=== PATIENT | female | born 1975 | race Caucasian/White ===

== ENCOUNTER 2017-05-27 09:00 | Day surgery (SDC) | payer OTHER ==
[~2017-05-27] VITALS: Ht 170.2 cm; Wt 105.9 kg
[~2017-05-27 09:00] MED LIST: ALBU4 PO; AMIT25 PO; AMLO10 PO; AMOX500 PO; ATEN25 PO; CEPH500 PO; CITA20 PO; CLON.1 PO; CLON.3TP PO; CRUTCH3 USE; CYCL10 PO; DANA200; DILT90 PO; DIVA250EC; ESCI10; ESCI20; FAMO20 PO; FLONASE ALLERG9.9 ML; HYDACE5 PO; HYDCHL25 PO; HYDGUAL120 PO; HYDPAM25; HYDPAM25 PO; IBUP800; IBUP800 PO; K-Dur20 MEQ PO; LAMO25; LEVFLO500 PO; LISI10; LISI20; LISI20 PO; Lasix40 MG; Lasix40 MG PO; Lisinopril2.5 MG; METO50 PO; MONT10T; Metoprolol Tart50 MG PO; NAPR220; NAPR500 PO; NAPR550 PO; NEBI10 PO; NEOPOLHCSU OT; OMEP20ER PO; OXYACE5T PO; PRAHYD1AE TOP; PRED10 PO; PROACE100; PROACE100 PO; PROP40; Pepcid40 MG PO; Prednisone10 MG PO; Prilosec Otc20 MG; QUET25; RXHYDACE PO; RXNEOPOLHC AS; RXPROACE PO; SERT50 PO; SULTRIDS PO; TELM40 PO; TRAM50; TRAZ100 PO; URSO300; VENL25; [UNRECOGNIZED DRUG - REMARK]; [UNRECOGNIZED DRUG - REMARK]
[2018-04-13] MEDS ORDERED: METO25ER (10:30)
[2018-04-13] MEDS ORDERED: GABA100 PO (10:30)
[2018-04-13] MEDS ORDERED: CYCL10 PO (16:41)
[2018-04-13] MEDS ORDERED: HYDHCL25 PO (16:42)
[2018-04-17] MEDS ORDERED: GABA100 PO (14:09)
[2018-04-17] MEDS ORDERED: GAVILAX17 GM PO (14:11)
[2018-04-17] MEDS ORDERED: Senna Plus Tab1 EACH PO (14:11)
[2018-04-17] MEDS ORDERED: FAMO20 PO (14:11)
[2018-04-17] MEDS ORDERED: FOLI1 PO (14:11)
[2018-04-17] MEDS ORDERED: Pentoxifylline400 MG PO (14:12)
[2018-04-17] MEDS ORDERED: THERAPEUTIC-M1 EAC1 PO (14:12)
[2018-04-17] MEDS ORDERED: THIA100 PO (14:13)
[2018-04-17] MEDS ORDERED: LEVFLO500 PO (14:13)
[2018-04-22] MEDS ORDERED: FURO40 PO (11:32)
[2018-04-22] MEDS ORDERED: Omeprazole20 M1 (11:34)
[2018-04-22] MEDS ORDERED: SPIR50 PO (11:35)
[2018-04-22] MEDS ORDERED: Ultram50 MG PO (11:36)
== END 2017-05-27 10:52 | disposition home or self-care (01) ==
LOC: ORSCSDS 09:00
DX: K62.5 Hemorrhage of anus and rectum (principal); D12.2 Benign neoplasm of ascending colon; D12.5 Benign neoplasm of sigmoid colon; K64.8 Other hemorrhoids; K57.30 Diverticulosis of large intestine without perforation or abscess without bleeding; D50.9 Iron deficiency anemia, unspecified; K21.9 Gastro-esophageal reflux disease without esophagitis; F17.210 Nicotine dependence, cigarettes, uncomplicated; F41.8 Other specified anxiety disorders; J45.998 Other asthma; I10 Essential (primary) hypertension; Z79.899 Other long term (current) drug therapy
CPT/HCPCS: 88305

== ENCOUNTER → 2017-10-29 | Outpatient (CLI) | payer OTHER ==
[2017-10-29 10:19] LABS: BASOPHILS ABSOLUTE AUTO 0.03 K/mm3 (0.00-0.23); BASOPHILS PERCENT AUTO 1 % (0-2); EOSINOPHILS ABSOLUTE AUTO 0.03 K/mm3 (0.00-0.68); EOSINOPHILS PERCENT AUTO 1 % (0-6); Hematocrit 24.7 % (33.0-51.0); Hemoglobin 7.5 g/dL (11.5-16.0); IMMATURE GRAN ABSOLUTE AUTO 0.01 K/mm3 (0.00-0.10); IMMATURE GRAN PERCENT AUTO 0 % (0-1); LYMPHOCYTES ABSOLUTE AUTO 0.87 K/mm3 (0.84-5.20); LYMPHOCYTES PERCENT AUTO 27 % (21-46); MONOCYTES PERCENT AUTO 9 % (4-13); Mean Corpuscular HGB 26.5 pg (26.0-34.0); Mean Corpuscular HGB Conc 30.4 g/dL (31.5-36.5); Mean Corpuscular Volume 87 fL (80-100); NEUTROPHILS ABSOLUTE AUTO 2.04 K/mm3 (1.96-9.15); NEUTROPHILS PERCENT AUTO 62 % (41-73); RDW Coefficient Variation 20.3 % (11.7-14.2); RDW Standard Deviation 64.1 fL (35.1-46.3); Red Blood Cell Count 2.83 M/mm3 (3.80-5.20); White Blood Cell Count 3.28 K/mm3 (4.00-11.30)
[2017-10-29 10:42] LABS: Alanine Aminotransfer (ALT/SGP 33 U/L (12-78); Albumin, Blood 2.8 g/dL (3.4-5.0); Albumin/Globulin Ratio 0.6 (0.8-1.8); Alk Phos 589 U/L (50-136); Anion Gap 9 mmol/L (6-16); Aspartate Aminotrans (AST/SGOT 118 U/L (12-37); Bilirubin, Total 5.4 mg/dL (0.1-1.0); Blood Urea Nitrogen 8 mg/dL (8-24); Bun/Creatinine Ratio 16.2 (12.0-20.0); CO2, Blood 27 mmol/L (21-32); Calcium, Blood 7.7 mg/dL (8.5-10.1); Chloride, Blood 104 mmol/L (98-108); Creatinine, Blood 0.49 mg/dL (0.40-1.00); Glomerular Filtration Rate >60 (60-); Glucose, Blood 140 mg/dL (70-99); Potassium, Blood 3.4 mmol/L (3.5-5.5); Sodium, Blood 140 mmol/L (136-145); Total Protein, Blood 7.8 g/dL (6.4-8.2)
[2017-10-29 10:47] LABS: Platelet Count 54 K/mm3 (150-400)
== END ==
LOC: LAB SHORT 09:25
PROVIDERS: Physician Assistant
DX: F10.20 Alcohol dependence, uncomplicated (principal); K70.10 Alcoholic hepatitis without ascites
CPT/HCPCS: 80053; 85025

== ENCOUNTER 2017-11-07 20:42 | Emergency (ER) | payer OTHER ==
[~2017-11-07] VITALS: Ht 170.2 cm; Wt 99.3 kg
[2017-11-07] MEDS ORDERED: Naltrexone HCl50 MG (20:54)
[2017-11-07] MEDS ORDERED: POTA20PAC (20:54)
[2017-11-07] MEDS ORDERED: Prednisone20 MG PO (21:10)
== END 2017-11-07 21:25 | disposition home or self-care (01) ==
LOC: ER 20:42
DX: M54.41 Lumbago with sciatica, right side (principal); Z88.5 Allergy status to narcotic agent; Z88.8 Allergy status to other drugs, medicaments and biological substances; Z79.899 Other long term (current) drug therapy; I10 Essential (primary) hypertension; F31.9 Bipolar disorder, unspecified; F43.10 Post-traumatic stress disorder, unspecified; F17.210 Nicotine dependence, cigarettes, uncomplicated
CPT/HCPCS: 99283

== ENCOUNTER 2017-11-27 14:23 | Emergency (ER) | payer OTHER ==
[~2017-11-27] VITALS: Ht 170.2 cm; Wt 99.3 kg
[~2017-11-27 14:23] MED LIST changes: +Naltrexone HCl50 MG; +POTA20PAC; +Prednisone20 MG PO
[2017-11-27 15:06] LABS: BASOPHILS ABSOLUTE AUTO 0.03 K/mm3 (0.00-0.23); BASOPHILS PERCENT AUTO 1 % (0-2); EOSINOPHILS ABSOLUTE AUTO 0.08 K/mm3 (0.00-0.68); EOSINOPHILS PERCENT AUTO 2 % (0-6); Hematocrit 26.5 % (33.0-51.0); IMMATURE GRAN ABSOLUTE AUTO 0.01 K/mm3 (0.00-0.10); IMMATURE GRAN PERCENT AUTO 0 % (0-1); LYMPHOCYTES ABSOLUTE AUTO 1.19 K/mm3 (0.84-5.20); LYMPHOCYTES PERCENT AUTO 22 % (21-46); MONOCYTES ABSOLUTE AUTO 0.36 K/mm3 (0.16-1.47); MONOCYTES PERCENT AUTO 7 % (4-13); Mean Corpuscular HGB 25.5 pg (26.0-34.0); Mean Corpuscular HGB Conc 30.2 g/dL (31.5-36.5); Mean Corpuscular Volume 84 fL (80-100); Mean Platelet Volume 11.4 fL (9.1-12.4); NEUTROPHILS ABSOLUTE AUTO 3.77 K/mm3 (1.96-9.15); NEUTROPHILS PERCENT AUTO 69 % (41-73); Platelet Count 146 K/mm3 (150-400); RDW Coefficient Variation 18.1 % (11.7-14.2); RDW Standard Deviation 55.5 fL (35.1-46.3); Red Blood Cell Count 3.14 M/mm3 (3.80-5.20); White Blood Cell Count 5.44 K/mm3 (4.00-11.30)
[2017-11-27 15:28] LABS: Alanine Aminotransfer (ALT/SGP 32 U/L (12-78); Albumin, Blood 2.8 g/dL (3.4-5.0); Albumin/Globulin Ratio 0.5 (0.8-1.8); Alk Phos 233 U/L (50-136); Anion Gap 10 mmol/L (6-16); Aspartate Aminotrans (AST/SGOT 51 U/L (12-37); Blood Urea Nitrogen 12 mg/dL (8-24); Bun/Creatinine Ratio 20.7 (12.0-20.0); CO2, Blood 23 mmol/L (21-32); Calcium, Blood 8.7 mg/dL (8.5-10.1); Chloride, Blood 106 mmol/L (98-108); Creatinine, Blood 0.58 mg/dL (0.40-1.00); Globulin, Blood 5.1 g/dL (2.2-4.0); Glomerular Filtration Rate >60 (60-); Glucose, Blood 118 mg/dL (70-99); Potassium, Blood 3.8 mmol/L (3.5-5.5); Sodium, Blood 139 mmol/L (136-145); Total Protein, Blood 7.9 g/dL (6.4-8.2)
[2017-11-27] MEDS ORDERED: HYDPAM25 (15:36)
[2017-11-27 15:57] LABS: Source, Urine Clean Catch
[2017-11-27 16:02] LABS: Blood, Urine Neg (Neg); Glucose Qualitative, Urine Neg (Neg); Ketones, Urine 1+ (Neg); Leukocyte Esterase, Urine 1+ (Neg); Nitrite, Urine Pos (Neg); Protein, Urine 1+ (Neg); Urobilinogen, Urine 4+ (Normal)
[2017-11-27 16:07] LABS: Appearance, Urine Clear (Clear); Bilirubin, Urine 2+ (Neg); Color, Urine Yellow (P-Yellow)
[2017-11-27 16:11] LABS: Bacteria Many /hpf; Red Blood Cells, Urine 0-2 /hpf (0-2); Squamous Epithelial Cells Few /hpf (Few)
[2017-11-27] MEDS ORDERED: CEPH500 PO (16:24)
== END 2017-11-27 16:34 | disposition home or self-care (01) ==
LOC: ER 14:23
PROVIDERS: Emergency Medicine
DX: R60.0 Localized edema (principal); I10 Essential (primary) hypertension; F31.9 Bipolar disorder, unspecified; Z88.8 Allergy status to other drugs, medicaments and biological substances; Z88.5 Allergy status to narcotic agent; Z79.899 Other long term (current) drug therapy
CPT/HCPCS: 36415; 80053; 81001; 83880; 85025; 93005; 93010; 99284-25

== ENCOUNTER 2018-04-29 14:07 | Emergency (ER) | payer OTHER ==
[~2018-04-29] VITALS: Ht 170.2 cm; Wt 97.5 kg
[~2018-04-29 14:07] MED LIST changes: +FOLI1 PO; +FURO40 PO; +GABA100 PO; +GAVILAX17 GM PO; +HYDHCL25 PO; +METO25ER; +Omeprazole20 M1; +Pentoxifylline400 MG PO; +SPIR50 PO; +Senna Plus Tab1 EACH PO; +THERAPEUTIC-M1 EAC1 PO; +THIA100 PO; +Ultram50 MG PO
[2018-04-29 14:46] LABS: BASOPHILS ABSOLUTE AUTO 0.05 K/mm3 (0.00-0.23); BASOPHILS PERCENT AUTO 0 % (0-2); EOSINOPHILS ABSOLUTE AUTO 0.09 K/mm3 (0.00-0.68); EOSINOPHILS PERCENT AUTO 1 % (0-6); Hematocrit 28.8 % (33.0-51.0); Hemoglobin 8.8 g/dL (11.5-16.0); IMMATURE GRAN ABSOLUTE AUTO 0.14 K/mm3 (0.00-0.10); IMMATURE GRAN PERCENT AUTO 1 % (0-1); LYMPHOCYTES ABSOLUTE AUTO 1.83 K/mm3 (0.84-5.20); LYMPHOCYTES PERCENT AUTO 9 % (21-46); MONOCYTES ABSOLUTE AUTO 1.42 K/mm3 (0.16-1.47); MONOCYTES PERCENT AUTO 7 % (4-13); Mean Corpuscular HGB 23.2 pg (26.0-34.0); Mean Corpuscular HGB Conc 30.6 g/dL (31.5-36.5); Mean Corpuscular Volume 76 fL (80-100); Mean Platelet Volume 10.3 fL (9.1-12.4); NEUTROPHILS PERCENT AUTO 82 % (41-73); Platelet Count 230 K/mm3 (150-400); RDW Coefficient Variation 21.5 % (11.7-14.2); RDW Standard Deviation 58.1 fL (35.1-46.3); White Blood Cell Count 19.83 K/mm3 (4.00-11.30)
[2018-04-29 15:10] LABS: Alanine Aminotransfer (ALT/SGP 55 U/L (12-78); Albumin, Blood 2.1 g/dL (3.4-5.0); Albumin/Globulin Ratio 0.4 (0.8-1.8); Alk Phos 379 U/L (50-136); Anion Gap 9 mmol/L (6-16); Aspartate Aminotrans (AST/SGOT 99 U/L (12-37); Bilirubin, Total 19.1 mg/dL (0.1-1.0); Blood Urea Nitrogen 11 mg/dL (8-24); Bun/Creatinine Ratio 20.4 (12.0-20.0); CO2, Blood 26 mmol/L (21-32); Calcium, Blood 8.3 mg/dL (8.5-10.1); Chloride, Blood 94 mmol/L (98-108); Creatinine, Blood 0.54 mg/dL (0.40-1.00); Globulin, Blood 5.4 g/dL (2.2-4.0); Glomerular Filtration Rate >60 (60-); Glucose, Blood 101 mg/dL (70-99); Potassium, Blood 3.7 mmol/L (3.5-5.5); Sodium, Blood 129 mmol/L (136-145); Total Protein, Blood 7.5 g/dL (6.4-8.2); Troponin I <0.015 ng/mL (0.000-0.040)
[2018-04-29 15:20] LABS: International Normalized Ratio 1.76; Prothrombin Time Results 17.6 Sec (9.7-11.5)
[2018-04-29 16:57] LABS: Source, Urine Clean Catch
[2018-04-29 17:05] LABS: Blood, Urine 4+ (Neg); Glucose Qualitative, Urine Neg (Neg); Ketones, Urine Neg (Neg); Leukocyte Esterase, Urine Neg (Neg); Nitrite, Urine Neg (Neg); Protein, Urine Neg (Neg); Urobilinogen, Urine 2+ (Normal)
[2018-04-29 17:20] LABS: Appearance, Urine Clear (Clear); Bilirubin, Urine 3+ (Neg); Color, Urine Yellow (P-Yellow)
[2018-04-29 17:21] LABS: Bacteria Mod /hpf; Squamous Epithelial Cells Few /hpf (Few); Transitional Epithelial Cells Few /hpf (0-Rare); White Blood Cells, Urine 0-2 /hpf (0-5)
== END 2018-04-29 18:05 | disposition home or self-care (01) ==
LOC: ER 14:07
PROVIDERS: Emergency Medicine; Physician Assistant
DX: R07.89 Other chest pain (principal); R18.8 Other ascites; K74.60 Unspecified cirrhosis of liver; R06.02 Shortness of breath; K72.90 Hepatic failure, unspecified without coma; I10 Essential (primary) hypertension; F31.9 Bipolar disorder, unspecified; F43.10 Post-traumatic stress disorder, unspecified; Z88.5 Allergy status to narcotic agent; Z88.8 Allergy status to other drugs, medicaments and biological substances; Z79.899 Other long term (current) drug therapy; F17.210 Nicotine dependence, cigarettes, uncomplicated
CPT/HCPCS: 36415; 49083; 71046; 80053; 81001; 83880; 84484; 85025; 85610; 93005; 93010; 96365; 99285-25; P9045

== ENCOUNTER 2018-05-05 12:02 | Emergency (ER) | payer OTHER ==
[~2018-05-05] VITALS: Ht 170.2 cm; Wt 87.1 kg
[2018-05-05 12:39] LABS: BASOPHILS ABSOLUTE AUTO 0.06 K/mm3 (0.00-0.23); BASOPHILS PERCENT AUTO 0 % (0-2); EOSINOPHILS ABSOLUTE AUTO 0.04 K/mm3 (0.00-0.68); EOSINOPHILS PERCENT AUTO 0 % (0-6); Hematocrit 30.6 % (33.0-51.0); Hemoglobin 9.3 g/dL (11.5-16.0); IMMATURE GRAN ABSOLUTE AUTO 0.09 K/mm3 (0.00-0.10); IMMATURE GRAN PERCENT AUTO 1 % (0-1); LYMPHOCYTES ABSOLUTE AUTO 1.56 K/mm3 (0.84-5.20); LYMPHOCYTES PERCENT AUTO 9 % (21-46); MONOCYTES ABSOLUTE AUTO 1.06 K/mm3 (0.16-1.47); MONOCYTES PERCENT AUTO 6 % (4-13); Mean Corpuscular HGB 22.5 pg (26.0-34.0); Mean Corpuscular HGB Conc 30.4 g/dL (31.5-36.5); Mean Corpuscular Volume 74 fL (80-100); Mean Platelet Volume 10.3 fL (9.1-12.4); NEUTROPHILS ABSOLUTE AUTO 15.29 K/mm3 (1.96-9.15); NEUTROPHILS PERCENT AUTO 85 % (41-73); Platelet Count 208 K/mm3 (150-400); RDW Coefficient Variation 20.8 % (11.7-14.2); Red Blood Cell Count 4.13 M/mm3 (3.80-5.20)
[2018-05-05 12:52] LABS: International Normalized Ratio 1.84; Prothrombin Time Results 18.3 Sec (9.7-11.5)
[2018-05-05 12:54] LABS: Alanine Aminotransfer (ALT/SGP 65 U/L (12-78); Albumin, Blood 2.1 g/dL (3.4-5.0); Albumin/Globulin Ratio 0.4 (0.8-1.8); Alk Phos 401 U/L (50-136); Anion Gap 9 mmol/L (6-16); Aspartate Aminotrans (AST/SGOT 101 U/L (12-37); Bilirubin, Total 15.6 mg/dL (0.1-1.0); Blood Urea Nitrogen 10 mg/dL (8-24); Bun/Creatinine Ratio 19.6 (12.0-20.0); CO2, Blood 26 mmol/L (21-32); Calcium, Blood 8.4 mg/dL (8.5-10.1); Chloride, Blood 97 mmol/L (98-108); Creatinine, Blood 0.51 mg/dL (0.40-1.00); Globulin, Blood 5.4 g/dL (2.2-4.0); Glomerular Filtration Rate >60 (60-); Glucose, Blood 100 mg/dL (70-99); Potassium, Blood 3.6 mmol/L (3.5-5.5); Sodium, Blood 132 mmol/L (136-145); Total Protein, Blood 7.5 g/dL (6.4-8.2)
[2018-05-05 13:55] LABS: Source, Urine Voided
[2018-05-05 14:06] LABS: Appearance, Urine Clear (Clear); Blood, Urine 1+ (Neg); Color, Urine Amber (P-Yellow); Glucose Qualitative, Urine Neg (Neg); Ketones, Urine 1+ (Neg); Leukocyte Esterase, Urine 1+ (Neg); Nitrite, Urine Neg (Neg); Protein, Urine 2+ (Neg); Specific Gravity, Urine 1.015 (1.003-1.022); Urobilinogen, Urine 4+ (Normal)
[2018-05-05 14:20] LABS: Bilirubin, Urine 3+ (Neg)
[2018-05-05 14:21] LABS: Squamous Epithelial Cells Few /hpf (Few)
[2018-05-05] MEDS ORDERED: Ultram50 MG PO (14:22)
[2018-05-05 14:24] LABS: Bacteria Few /hpf
[2018-05-05] MEDS ORDERED: ONDA4ODT MM (15:19)
[2018-05-05] MEDS ORDERED: Cephalexin500 M1 PO (15:54)
== END 2018-05-05 16:00 | disposition home or self-care (01) ==
LOC: ER 12:02
PROVIDERS: Physician Assistant
DX: K74.60 Unspecified cirrhosis of liver (principal); R18.8 Other ascites; R06.02 Shortness of breath; N39.0 Urinary tract infection, site not specified; F31.9 Bipolar disorder, unspecified; F43.10 Post-traumatic stress disorder, unspecified; F17.200 Nicotine dependence, unspecified, uncomplicated
CPT/HCPCS: 36415; 49083; 71046; 80053; 81001; 82140; 83880; 85025; 85610; 85730; 87086; 93005; 93010; 96365; 96375; 99284-25; J2405; P9041

== ENCOUNTER 2018-05-29 20:39 | Emergency (ER) | payer OTHER ==
[~2018-05-29] VITALS: Ht 170.2 cm; Wt 86.6 kg
[~2018-05-29 20:39] MED LIST changes: +Cephalexin500 M1 PO; +ONDA4ODT MM
[2018-05-29 21:34] LABS: BASOPHILS ABSOLUTE AUTO 0.01 K/mm3 (0.00-0.23); BASOPHILS PERCENT AUTO 0 % (0-2); EOSINOPHILS PERCENT AUTO 0 % (0-6); Hematocrit 28.8 % (33.0-51.0); Hemoglobin 8.3 g/dL (11.5-16.0); IMMATURE GRAN ABSOLUTE AUTO 0.04 K/mm3 (0.00-0.10); IMMATURE GRAN PERCENT AUTO 0 % (0-1); LYMPHOCYTES ABSOLUTE AUTO 0.92 K/mm3 (0.84-5.20); LYMPHOCYTES PERCENT AUTO 10 % (21-46); MONOCYTES ABSOLUTE AUTO 0.37 K/mm3 (0.16-1.47); MONOCYTES PERCENT AUTO 4 % (4-13); Mean Corpuscular HGB Conc 28.8 g/dL (31.5-36.5); Mean Corpuscular Volume 73 fL (80-100); Mean Platelet Volume 9.8 fL (9.1-12.4); NEUTROPHILS ABSOLUTE AUTO 8.07 K/mm3 (1.96-9.15); NEUTROPHILS PERCENT AUTO 86 % (41-73); Platelet Count 183 K/mm3 (150-400); RDW Coefficient Variation 20.3 % (11.7-14.2); RDW Standard Deviation 52.9 fL (35.1-46.3); Red Blood Cell Count 3.96 M/mm3 (3.80-5.20); White Blood Cell Count 9.41 K/mm3 (4.00-11.30)
[2018-05-29 21:52] LABS: Alanine Aminotransfer (ALT/SGP 73 U/L (12-78); Albumin, Blood 2.3 g/dL (3.4-5.0); Albumin/Globulin Ratio 0.4 (0.8-1.8); Alk Phos 308 U/L (50-136); Anion Gap 9 mmol/L (6-16); Aspartate Aminotrans (AST/SGOT 61 U/L (12-37); Bilirubin, Total 6.1 mg/dL (0.1-1.0); Blood Urea Nitrogen 25 mg/dL (8-24); Bun/Creatinine Ratio 30.2 (12.0-20.0); CO2, Blood 27 mmol/L (21-32); Calcium, Blood 8.2 mg/dL (8.5-10.1); Chloride, Blood 102 mmol/L (98-108); Creatinine, Blood 0.83 mg/dL (0.40-1.00); Globulin, Blood 5.2 g/dL (2.2-4.0); Glomerular Filtration Rate >60 (60-); Glucose, Blood 136 mg/dL (70-99); Potassium, Blood 3.9 mmol/L (3.5-5.5); Sodium, Blood 138 mmol/L (136-145); Total Protein, Blood 7.5 g/dL (6.4-8.2)
== END 2018-05-30 00:33 | disposition home or self-care (01) ==
LOC: ER 20:39
PROVIDERS: Emergency Medicine
DX: K70.9 Alcoholic liver disease, unspecified (principal); B37.0 Candidal stomatitis; D64.9 Anemia, unspecified; Z88.5 Allergy status to narcotic agent; Z88.8 Allergy status to other drugs, medicaments and biological substances; Z79.899 Other long term (current) drug therapy; I10 Essential (primary) hypertension; F31.9 Bipolar disorder, unspecified; F17.210 Nicotine dependence, cigarettes, uncomplicated
CPT/HCPCS: 36415; 80053; 82140; 83690; 85025; 99284

== ENCOUNTER 2018-06-16 12:30 | Emergency (ER) | payer OTHER ==
[~2018-06-16] VITALS: Ht 170.2 cm; Wt 82.5 kg
[2018-06-16 13:45] LABS: BASOPHILS ABSOLUTE AUTO 0.03 K/mm3 (0.00-0.23); BASOPHILS PERCENT AUTO 1 % (0-2); EOSINOPHILS ABSOLUTE AUTO 0.09 K/mm3 (0.00-0.68); EOSINOPHILS PERCENT AUTO 1 % (0-6); Hematocrit 28.8 % (33.0-51.0); Hemoglobin 8.2 g/dL (11.5-16.0); IMMATURE GRAN ABSOLUTE AUTO 0.04 K/mm3 (0.00-0.10); IMMATURE GRAN PERCENT AUTO 1 % (0-1); LYMPHOCYTES ABSOLUTE AUTO 1.17 K/mm3 (0.84-5.20); LYMPHOCYTES PERCENT AUTO 18 % (21-46); MONOCYTES ABSOLUTE AUTO 0.38 K/mm3 (0.16-1.47); MONOCYTES PERCENT AUTO 6 % (4-13); Mean Corpuscular HGB 20.9 pg (26.0-34.0); Mean Corpuscular HGB Conc 28.5 g/dL (31.5-36.5); Mean Corpuscular Volume 73 fL (80-100); NEUTROPHILS ABSOLUTE AUTO 4.84 K/mm3 (1.96-9.15); NEUTROPHILS PERCENT AUTO 74 % (41-73); Platelet Count 133 K/mm3 (150-400); RDW Coefficient Variation 23.6 % (11.7-14.2); RDW Standard Deviation 61.2 fL (35.1-46.3); Red Blood Cell Count 3.93 M/mm3 (3.80-5.20); White Blood Cell Count 6.55 K/mm3 (4.00-11.30)
[2018-06-16 13:47] LABS: Mean Platelet Volume 9.6 fL (9.1-12.4)
[2018-06-16 14:04] LABS: Alanine Aminotransfer (ALT/SGP 42 U/L (12-78); Albumin, Blood 2.4 g/dL (3.4-5.0); Albumin/Globulin Ratio 0.5 (0.8-1.8); Alk Phos 308 U/L (50-136); Anion Gap 11 mmol/L (6-16); Aspartate Aminotrans (AST/SGOT 38 U/L (12-37); Blood Urea Nitrogen 17 mg/dL (8-24); Bun/Creatinine Ratio 23.2 (12.0-20.0); CO2, Blood 21 mmol/L (21-32); Calcium, Blood 8.3 mg/dL (8.5-10.1); Chloride, Blood 103 mmol/L (98-108); Creatinine, Blood 0.73 mg/dL (0.40-1.00); Globulin, Blood 4.8 g/dL (2.2-4.0); Glomerular Filtration Rate >60 (60-); Glucose, Blood 213 mg/dL (70-99); Potassium, Blood 3.6 mmol/L (3.5-5.5); Sodium, Blood 135 mmol/L (136-145); Total Protein, Blood 7.2 g/dL (6.4-8.2)
[2018-06-16] MEDS ORDERED: Roxicodone5 MG PO (21:54)
== END 2018-06-16 22:17 | disposition home or self-care (01) ==
LOC: ER 12:30
PROVIDERS: Physician Assistant
DX: R17 Unspecified jaundice (principal); D64.9 Anemia, unspecified; M54.9 Dorsalgia, unspecified; Z88.5 Allergy status to narcotic agent; Z88.8 Allergy status to other drugs, medicaments and biological substances; Z79.899 Other long term (current) drug therapy; I10 Essential (primary) hypertension; F31.9 Bipolar disorder, unspecified; F43.10 Post-traumatic stress disorder, unspecified; F17.210 Nicotine dependence, cigarettes, uncomplicated; W19.XXXA Unspecified fall, initial encounter
CPT/HCPCS: 36415; 72100; 76705; 80053; 82140; 83690; 85025; 96361; 96374; 99284-25; J2405; J7030

== ENCOUNTER 2018-12-17 09:18 | Day surgery (SDC) | payer OTHER ==
[~2018-12-17] VITALS: Ht 170.2 cm; Wt 91.2 kg
[~2018-12-17 09:18] MED LIST changes: +Aldactone100 MG PO; +FURO80 PO; +LACTULOSE20 GM/30 M PO; +METO25ER PO; +Neurontin300 MG PO; +Roxicodone5 MG PO
--- NOTE | 2018-12-17 11:18 | NUR ---
12/17/18 1118 Arin DuronAfshan SCOPE OUT AT 1116. BANDING KIT ASSEMBLED. SCOPE RE-INSERTED AT 1118.
== END 2018-12-17 12:05 | disposition home or self-care (01) ==
LOC: ORSCSDS 09:18
PROVIDERS: Internal Medicine Gastroenterology
PROC: 06L38CZ Occlusion of Esophageal Vein with Extraluminal Device, Via Natural or Artificial Opening Endoscopic (ICD-10-PCS; principal; 2018-12-17 11:15)
DX: I85.00 Esophageal varices without bleeding (principal); K70.31 Alcoholic cirrhosis of liver with ascites; K44.9 Diaphragmatic hernia without obstruction or gangrene; K76.6 Portal hypertension; K31.89 Other diseases of stomach and duodenum; I10 Essential (primary) hypertension; K21.9 Gastro-esophageal reflux disease without esophagitis; E66.9 Obesity, unspecified; Z68.31 Body mass index [BMI] 31.0-31.9, adult; Z79.899 Other long term (current) drug therapy
CPT/HCPCS: J7120

== ENCOUNTER 2019-01-02 09:15 | Day surgery (SDC) | payer OTHER ==
[~2019-01-02] VITALS: Ht 170.2 cm; Wt 90.8 kg
[2019-01-02] MEDS ORDERED: NADO20 (10:14)
== END 2019-01-02 11:38 | disposition home or self-care (01) ==
LOC: ORSCSDS 09:15
PROVIDERS: Internal Medicine Gastroenterology
PROC: 06L38CZ Occlusion of Esophageal Vein with Extraluminal Device, Via Natural or Artificial Opening Endoscopic (ICD-10-PCS; principal; 2019-01-02 11:00)
DX: I85.00 Esophageal varices without bleeding (principal); K76.6 Portal hypertension; K31.89 Other diseases of stomach and duodenum; K70.30 Alcoholic cirrhosis of liver without ascites; F31.9 Bipolar disorder, unspecified; I10 Essential (primary) hypertension; F41.9 Anxiety disorder, unspecified; J45.909 Unspecified asthma, uncomplicated; Z79.899 Other long term (current) drug therapy; F17.210 Nicotine dependence, cigarettes, uncomplicated
CPT/HCPCS: J2704; J7120

== ENCOUNTER → 2019-01-28 | Outpatient (CLI) | payer OTHER ==
[~2019-01-28] MED LIST changes: +NADO20
== END | disposition home or self-care (01) ==
LOC: LAB SHORT 10:27 → LAB 10:27
DX: N39.0 Urinary tract infection, site not specified (principal)
CPT/HCPCS: 87086

== ENCOUNTER 2020-05-18 12:42 | Inpatient (IN) | payer OTHER ==
[~2020-05-18] VITALS: Ht 170.2 cm; Wt 96.1 kg
[~2020-05-18 12:42] MED LIST changes: -AMIT25 PO; -Aldactone100 MG PO; -FOLI1 PO; -FURO40 PO; -FURO80 PO; -HYDHCL25 PO; -LACTULOSE20 GM/30 M PO; -NADO20; -Neurontin300 MG PO; -Omeprazole20 M1; -THERAPEUTIC-M1 EAC1 PO
[2020-05-18 14:14] LABS: BASOPHILS ABSOLUTE AUTO 0.02 K/mm3 (0.00-0.23); BASOPHILS PERCENT AUTO 0 % (0-2); EOSINOPHILS ABSOLUTE AUTO 0.03 K/mm3 (0.00-0.68); EOSINOPHILS PERCENT AUTO 1 % (0-6); Hematocrit 38.9 % (33.0-51.0); Hemoglobin 13.2 g/dL (11.5-16.0); IMMATURE GRAN ABSOLUTE AUTO 0.01 K/mm3 (0.00-0.10); IMMATURE GRAN PERCENT AUTO 0 % (0-1); LYMPHOCYTES ABSOLUTE AUTO 1.03 K/mm3 (0.84-5.20); LYMPHOCYTES PERCENT AUTO 19 % (21-46); MONOCYTES ABSOLUTE AUTO 0.31 K/mm3 (0.16-1.47); MONOCYTES PERCENT AUTO 6 % (4-13); Mean Corpuscular HGB 30.9 pg (26.0-34.0); Mean Corpuscular HGB Conc 33.9 g/dL (31.5-36.5); Mean Corpuscular Volume 91 fL (80-100); Mean Platelet Volume 10.8 fL (9.1-12.4); NEUTROPHILS ABSOLUTE AUTO 4.15 K/mm3 (1.96-9.15); NEUTROPHILS PERCENT AUTO 75 % (41-73); Platelet Count 62 K/mm3 (150-400); RDW Coefficient Variation 15.5 % (11.7-14.2); Red Blood Cell Count 4.27 M/mm3 (3.80-5.20); White Blood Cell Count 5.55 K/mm3 (4.00-11.30)
[2020-05-18 14:41] LABS: Ethanol (Alcohol), Blood, Med <3 mg/dL
[2020-05-18 14:42] LABS: Alanine Aminotransfer (ALT/SGP 50 U/L (12-78); Albumin, Blood 3.3 g/dL (3.4-5.0); Albumin/Globulin Ratio 0.7 (0.8-1.8); Alk Phos 362 U/L (50-136); Anion Gap 6 mmol/L (6-16); Aspartate Aminotrans (AST/SGOT 81 U/L (12-37); Bilirubin, Total 2.3 mg/dL (0.1-1.0); Blood Urea Nitrogen 9 mg/dL (8-24); Bun/Creatinine Ratio 20.1 (12.0-20.0); CO2, Blood 26 mmol/L (21-32); Calcium, Blood 8.1 mg/dL (8.5-10.1); Chloride, Blood 107 mmol/L (98-108); Creatinine, Blood 0.45 mg/dL (0.40-1.00); Globulin, Blood 4.6 g/dL (2.2-4.0); Glomerular Filtration Rate >60 (60-); Glucose, Blood 116 mg/dL (70-99); Potassium, Blood 3.9 mmol/L (3.5-5.5); Sodium, Blood 139 mmol/L (136-145); Total Protein, Blood 7.9 g/dL (6.4-8.2)
[2020-05-18] MEDS ORDERED: AMIT25 PO (16:01)
[2020-05-18] MEDS ORDERED: CYCL10 PO (16:02)
[2020-05-18] MEDS ORDERED: FURO80 PO (16:03)
[2020-05-18] MEDS ORDERED: FURO40 PO (16:03)
[2020-05-18] MEDS ORDERED: HYDPAM50 PO (16:03)
[2020-05-18] MEDS ORDERED: OMEP20ER PO (16:04)
[2020-05-18] MEDS ORDERED: Neurontin300 MG PO (16:04)
[2020-05-18] MEDS ORDERED: Aldactone100 MG PO (16:04)
[2020-05-18] MEDS ORDERED: COLESTIPOL HCL1 G1 PO (16:05)
[2020-05-18] MEDS ORDERED: ALBU90OI INH (16:05)
[2020-05-18] MEDS ORDERED: FOLI1 PO (16:06)
[2020-05-18] MEDS ORDERED: DAILY-VITE1 EACH PO (16:06)
[2020-05-18] MEDS ORDERED: ESCI20 PO (16:07)
[2020-05-18] MEDS ORDERED: Naltrexone HCl50 MG PO (16:07)
[2020-05-18] MEDS ORDERED: ALDACTONE100 MG PO (16:45)
[2020-05-18] MEDS ORDERED: NADO20 PO (16:47)
[2020-05-18] MEDS ORDERED: MELATONIN5 M1 PO (16:48)
[2020-05-18] MEDS ORDERED: ZINC15 PO (16:48)
[2020-05-18] MEDS ORDERED: Vitamin B Comple1 EA PO (16:49)
[2020-05-18] MEDS ORDERED: BIOTIN1 MG PO (16:49)
[2020-05-18] MEDS ORDERED: Enulose10 GM/15 M PO (16:50)
[2020-05-18] MEDS ORDERED: MACRODANTIN100 M1 PO (17:26)
[2020-05-18 17:44] LABS: Hematocrit 37.4 % (33.0-51.0); Hemoglobin 12.6 g/dL (11.5-16.0)
[2020-05-18 17:55] LABS: International Normalized Ratio 1.26; Prothrombin Time Results 13.3 Sec (9.7-11.5)
[2020-05-18] MEDS ORDERED: VITAMIN D5000 UNIT PO (17:59)
[2020-05-18] MEDS ORDERED: VITAMIN A PO (17:59)
[2020-05-18 18:01] LABS: Source, Urine Voided
[2020-05-18 18:11] LABS: Appearance, Urine Clear (Clear); Blood, Urine Neg (Neg); Color, Urine Yellow (P-Yellow); Glucose Qualitative, Urine Neg (Neg); Ketones, Urine 2+ (Neg); Leukocyte Esterase, Urine 1+ (Neg); Nitrite, Urine Neg (Neg); Protein, Urine 1+ (Neg); Urobilinogen, Urine 4+ (Normal)
[2020-05-18 18:29] LABS: Bilirubin, Urine 2+ (Neg)
[2020-05-18 18:30] LABS: Bacteria Few /hpf; Red Blood Cells, Urine Rare /hpf (0-2); Squamous Epithelial Cells Few /hpf (Few)
--- NOTE | 2020-05-18 18:40 | NUR ---
ASSUMED CARE FROM CHAIN PEGGER, SHIFT SUMMARY PT ARRIVED FROM ER AT APPROXIMATELY 1625 THIS AFTERNOON. PT HAS BEEN ADMITTED FOR POSSIBLE GI BLEED AND ETOH WITHDRAW. CIWA AT ADMISSION WAS 8, 2MG OF ATIVAN HAS BEEN ADMINISTERED. PT IS ALERT AND ORIENTED, SBA. DR. JOHNSON HAS BEEN CONSULTED AND WILL COMPLETE AN UPPER GI SCOPE TOMORROW; PT IS ON FULL LIQUIDS (NO REDS) UNTIL 3AM ON 05/19/20, THEN WATER ONLY UNTIL NOON 05/19/20 AT THAT POINT SHE SHOULD BE NPO. DR. JOHNSON WILL SEE HER IN THE AFTERNOON. PT IS RESTING IN BED AT THIS TIME. VS STABLE
[2020-05-18 19:15] LABS: Influenza A, PCR Negative (NEGATIVE); Influenza B, PCR Negative (NEGATIVE); Resp Syncytial Virus, PCR Negative (NEGATIVE); SARS-Cov-2 (COVID-19) PCR, MMC Negative (NEGATIVE)
[2020-05-19 04:10] LABS: BASOPHILS ABSOLUTE AUTO 0.02 K/mm3 (0.00-0.23); BASOPHILS PERCENT AUTO 1 % (0-2); EOSINOPHILS ABSOLUTE AUTO 0.07 K/mm3 (0.00-0.68); EOSINOPHILS PERCENT AUTO 2 % (0-6); Hematocrit 35.1 % (33.0-51.0); IMMATURE GRAN ABSOLUTE AUTO 0.01 K/mm3 (0.00-0.10); IMMATURE GRAN PERCENT AUTO 0 % (0-1); LYMPHOCYTES ABSOLUTE AUTO 0.85 K/mm3 (0.84-5.20); LYMPHOCYTES PERCENT AUTO 26 % (21-46); MONOCYTES PERCENT AUTO 9 % (4-13); Mean Corpuscular HGB 31.2 pg (26.0-34.0); Mean Corpuscular HGB Conc 34.2 g/dL (31.5-36.5); Mean Corpuscular Volume 91 fL (80-100); Mean Platelet Volume 10.3 fL (9.1-12.4); NEUTROPHILS ABSOLUTE AUTO 2.08 K/mm3 (1.96-9.15); NEUTROPHILS PERCENT AUTO 63 % (41-73); Platelet Count 54 K/mm3 (150-400); RDW Coefficient Variation 15.2 % (11.7-14.2); RDW Standard Deviation 50.8 fL (35.1-46.3); Red Blood Cell Count 3.85 M/mm3 (3.80-5.20); White Blood Cell Count 3.33 K/mm3 (4.00-11.30)
[2020-05-19 04:20] LABS: Anion Gap 6 mmol/L (6-16); Blood Urea Nitrogen 8 mg/dL (8-24); Bun/Creatinine Ratio 16.9 (12.0-20.0); CO2, Blood 25 mmol/L (21-32); Calcium, Blood 8.2 mg/dL (8.5-10.1); Chloride, Blood 109 mmol/L (98-108); Creatinine, Blood 0.47 mg/dL (0.40-1.00); Glomerular Filtration Rate >60 (60-); Glucose, Blood 96 mg/dL (70-99); Magnesium, Blood 1.8 mg/dL (1.6-2.4); Phosphorus, Blood 2.9 mg/dL (2.5-4.9); Potassium, Blood 3.6 mmol/L (3.5-5.5); Sodium, Blood 140 mmol/L (136-145)
--- NOTE | 2020-05-19 06:51 | NUR ---
SHIFT SUMMARY PT HAS BEEN IN STABLE WITHDRAW T/O SHIFT WITH CIWA SCORES 6-8. PT HAD A HEADACHE THROUGH MOST OF THE NIGHT WITH RELIEF FROM PRN MAIN MEDICATION. PT HAD INCREASING NAUSEA BY AM, GAVE PRN ZOFRAN WITH SOME RELIEF. PT DID NOT HAVE A BM THIS SHIFT. BP STABLE 137-142 SYSTOLIC. HR ABOUT 100. O2 SATS IN THE HIGH 90'S ON ROOM AIR. PT SLEPT MOST OF THE NIGHT. PROTONIX DRIP RUNNING T/O THE NIGHT, LIQUIDS UNTIL 0300 THEN H2O ONLY SINCE. PTHAD AN UNEVENTFUL NIGHT IN STABLE WITHDRAW.
--- NOTE | 2020-05-19 09:41 | NUR ---
PT GAVE EXHIBITION CARVER PERMISSION FOR CARE 05/19/20 AT 0700.
--- NOTE | 2020-05-19 15:23 | NUR ---
Patient up to Ambulate independently. Gait steady. History, Chart, Medications and Allergies reviewed before start of procedure.Lungs clear T/O to Auscultation. Patient States Post-Procedure ride home has been arranged. ALL BELONING LEFT IN ROOM.
--- NOTE | 2020-05-19 17:12 | NUR ---
05/19/20 1712 Elpidio Appiah PATIENT DETERMINED TO BE ASA APPROPRIATE FOR PROPOFOL SEDATION PRIOR TO START OF PROCEDURE BY DR. Pj Bryant Placed3-LEAD EKG REVIEWED WITH PHYSICIAN PRIOR TO START OF PROCEDURE.Patient to ENDO 1History, Chart, Medications and Allergies reviewed before start of procedure.MONITOR INTACT WITH CONTINUOUS PULSE OXIMETRY AND INTERMITTENT BP.O2 VIA N/C INTACT THROUGHOUT SEDATION/PROCEDURE.
--- NOTE | 2020-05-19 18:17 | NUR ---
SHIFT NOTE PT A.O X4. PT HAS BEEN TO OR TODAY, RECIEVED 3 ESOPHAGEAL BANDS, NO ACTIVE BLEEDING WAS NOTED. PT NOW SITTING IN BED EATING CLEAR LIQUID DIET. PT RETURNED FROM OR IN GREAT DEAL OF PAIN RECEIVED 50MCG OF FENTANYL FOR PAIN WHICH WAS TOLERATED WELL. OCTREOTIDE AND PROTONIX INFUSING PER ORDERS FROM DR JOHNSON TO INFUSE BOTH.
[2020-05-20 04:27] LABS: Anion Gap 5 mmol/L (6-16); Blood Urea Nitrogen 6 mg/dL (8-24); CO2, Blood 25 mmol/L (21-32); Calcium, Blood 8.1 mg/dL (8.5-10.1); Chloride, Blood 110 mmol/L (98-108); Creatinine, Blood 0.55 mg/dL (0.40-1.00); Glomerular Filtration Rate >60 (60-); Glucose, Blood 124 mg/dL (70-99); Phosphorus, Blood 3.4 mg/dL (2.5-4.9); Sodium, Blood 140 mmol/L (136-145)
--- NOTE | 2020-05-20 06:03 | NUR ---
SHIFT SUMMARY START OF SHIFT PT WAS VERY ANXIOUS AND STATING CHEST, ABD, AND L ARM PAIN. PT STATED THE PAIN HAS BEEN INCREASING SINCE EGD. TINGLING IN L HAND AND INCREASING HEADACHE. GAVE PRN ATIVAN AND PT ANXIETY AND PAIN WAS RELIEVED AND PT WAS ABLE TO SLEEP. HIGHEST CIWA WAS 11 AND IT WAS NEAR START OF SHIFT, PT WAS <8 STABLE WITHDRAW THE REST OF SHIFT. PT STATED MINIMAL CHEST/ABD DISCOMFORT THE REST OF SHIFT. BP 140-150'S SYSTOLIC. HR 80'S. O2 SATS <95% ON ROOM AIR. PT ABLE TO SLEEP SOME OF THE NIGHT. PROTONIX AND SANDOSTATIN CONTINOUS INF T/O SHIFT.
--- NOTE | 2020-05-20 19:19 | NUR ---
SUMMARY PT HAS HAD NO FURTHER SIGNS OF BLEEDING TODAY. VITALS STABLE. PT CALLING APPROPRIATELY FOR NEEDS. SEE REPEAT ASSESSMENTS AND VITALS. MEDICATED WITH FENTANYL FOR MOSTLY EPIGASTRIC PAIN TODAY. ALSO MEDICATED PER CIWA ASSESSMENTS. PT HAD VISITOR THIS AFTERNOON. DR. JOHNSON TO BEDSIDE FOR ASSESSMENT. CONTINUE WITH PROTONIX AND OCTREOTRIDE DRIP. CHANGE TO MEDICAL STATUS WITH TELEMETRY. ADVANCE DIET TO FULL LIQUID. PT TOLERATING WITHOUT EPISODES OF EMESIS, DOES REPORT INTERMITTENT NAUSEA THAT IS IMPROVED WITH FOOD. SPOKE WITH DR. COX REGARDING PT'S HOME MEDICATIONS, NEW ORDERS PLACED. SEE ORDERS/EMAR.
[2020-05-21 04:18] LABS: Hematocrit 35.3 % (33.0-51.0); Hemoglobin 11.7 g/dL (11.5-16.0); Mean Corpuscular HGB Conc 33.1 g/dL (31.5-36.5); Mean Corpuscular Volume 93 fL (80-100); Mean Platelet Volume 10.4 fL (9.1-12.4); RDW Coefficient Variation 15.1 % (11.7-14.2); Red Blood Cell Count 3.78 M/mm3 (3.80-5.20); White Blood Cell Count 3.38 K/mm3 (4.00-11.30)
[2020-05-21 04:20] LABS: Platelet Count 50 K/mm3 (150-400)
[2020-05-21 04:32] LABS: Anion Gap 5 mmol/L (6-16); Blood Urea Nitrogen 6 mg/dL (8-24); Bun/Creatinine Ratio 10.8 (12.0-20.0); CO2, Blood 27 mmol/L (21-32); Calcium, Blood 7.9 mg/dL (8.5-10.1); Chloride, Blood 109 mmol/L (98-108); Creatinine, Blood 0.56 mg/dL (0.40-1.00); Glomerular Filtration Rate >60 (60-); Glucose, Blood 178 mg/dL (70-99); Magnesium, Blood 1.7 mg/dL (1.6-2.4); Potassium, Blood 3.8 mmol/L (3.5-5.5); Sodium, Blood 141 mmol/L (136-145)
--- NOTE | 2020-05-21 05:30 | NUR ---
SUMMARY PT WITH C/O OF "CHEST PAIN" TO MS ACCESS DATABASE DEVELOPER TONIGHT-NO TELE CHANGES.VSS.WHEN I CHECKED PT SHE REPORTED STATES SAME PAIN SHE HAS HAD INTERMITTENTLY SINCE ADMIT.PT POINTS TO PEIGASTRIC AREA AND AREA OF FULLNESS WHICH SHE REPORTS ABD HERNIA THAT IS INOPERABLE DUE TO ETOH ABUSE AND LIVER IN POOR HEALTH.PT HAS ALSO C/O TINGLING L ARM WHICH REPORTS HX OF AT HOME ALTHOUGH STATES WORSE NOW. RADIAL PULSE AND REFILL INTACT AND WNL.PT TEARFUL WITH MS ACCESS DATABASE DEVELOPER, BUT CALMER ON MY EXAM WITH HX ANXIETY. I NOTIFIED DR [facility] ABOVE ASSESSMENT AND PT C/O.SHE INSTRUCTED ME TO GIVE VISTARIL ORDERED.PT ALSO ITCHING AND VISTARIL IS HOME MED. PT SLEPT AFTER. THIS AM, PT PLEASED WITH REST AND BP. NO CURRENT C/O.
--- NOTE | 2020-05-21 18:08 | NUR ---
SHIFT SUMMARY PT A&Ox4; CALM AND COOPERATIVE WITH CARE. PT TEARFUL AT TIMES AND ANXIOUS. PT SBA IN ROOM DUE TO IV POLES TO BATHROOM; MOVES IND IN BED, REPOS SELF. CIWA SCORES <8 T/O SHIFT. PT DENIE PAIN, CHEST PAIN, NAUSEA, AND DIZZINESS T/O SHIFT. PT HAD TWO BM DURING SHIFT, BOTH BROWN AND FORMED. VSS. NO OTHER ACUTE CHANAGES NOTED DURING SHIFT. WILL CONTINUE TO MONITOR UNITL REPORT GIVEN TO ONCOMING RN.
[2020-05-22 03:58] LABS: Hematocrit 36.3 % (33.0-51.0); Mean Corpuscular HGB 31.3 pg (26.0-34.0); Mean Corpuscular HGB Conc 33.1 g/dL (31.5-36.5); Mean Corpuscular Volume 95 fL (80-100); Mean Platelet Volume 10.4 fL (9.1-12.4); Platelet Count 64 K/mm3 (150-400); RDW Coefficient Variation 15.4 % (11.7-14.2); RDW Standard Deviation 53.3 fL (35.1-46.3); Red Blood Cell Count 3.83 M/mm3 (3.80-5.20); White Blood Cell Count 4.09 K/mm3 (4.00-11.30)
[2020-05-22 04:13] LABS: Anion Gap 4 mmol/L (6-16); Blood Urea Nitrogen 7 mg/dL (8-24); Bun/Creatinine Ratio 12.3 (12.0-20.0); CO2, Blood 31 mmol/L (21-32); Calcium, Blood 8.1 mg/dL (8.5-10.1); Chloride, Blood 107 mmol/L (98-108); Creatinine, Blood 0.57 mg/dL (0.40-1.00); Glomerular Filtration Rate >60 (60-); Glucose, Blood 120 mg/dL (70-99); Sodium, Blood 142 mmol/L (136-145)
--- NOTE | 2020-05-22 05:01 | NUR ---
SHIFT SUMMARY PT ALERT AND ORIENTED X 4. PT REPORTS GENERALIZED PAIN. MEDICATED PER EMAR PT REPORTS RELIEF. CIWA Q 4 HRS, RANGED BETWEEN 2-4. STABLE. PT ABLE TO TURN SELF NEEDED. IND IN ROOM. HR STABLE. BP STABLE. OXYGEN SATURATION MAINTAINED ABOVE 95% ON RA. REPORTS NO CP OR PRESSURE. REFUSED SCD'S. WILL CONTINUE TO MONITOR UNTIL REPORT GIVEN TO ABIGAIL MANN.
[2020-05-22] MEDS ORDERED: CIPR250 PO (12:18)
[2020-05-22] MEDS ORDERED: CHLO25 PO (12:18)
--- NOTE | 2020-05-22 18:44 | NUR ---
DISCHARGE SUMMARY PT COMPLETED OCTRIOTIDE INFUSION ENDING AT APPROX 1800. PT A&Ox4; CALM AND COOPERATIVE WITH CARE. PT RESTING IN BED DURING SHIFT. UP IND IN ROOM. APPEARS TO BE SLEEPING INTERMINTTENTLY. PT REPORTS EPIGASTRIC PAIN AND HEADACHE; NOTIFIED DR COX, NEW ORDER FOR TYLENOL ONE TIME DOSE WITH MINIMAL RELEIFE AND NOTIFIED DR COX NEW ORDERS FOR NORCO 5/325; PT REPORTS RELEIFE. PT DENIES SOB, NAUSEA AND DIZZINESS. VSS. NO OTHER ACUTE CHANGES NOTED DURING SHIFT. PT EDUCATED ON DISCHARGE INSTRUCTIONS, FOLLOW UP APPOINTMENTS, AND MEDICATIONS. PRESCRIPTIONS CALLED INTO [facility]; PHYSICAL PRESCRIPTION GIVEN TO PATIENT. PT EDUCATION ON ETOH WITHDRAWAL; PT STATES SHE IS PLANNING TO FOLLOW UP WITH AGAT[facility] PISANO TOMORROW 05/23/20; PLANS TO GO TO INPATIENT REHAB. PT LEFT ROOM VIA WHEELCHAIR AT 1809.
[2020-05-23 17:09] LABS: 7-AMINOCLONAZEPAM Negative (.); ALPRAZOLAM Negative (.); BENZODIAZEPINES CONFIRM Positive (.); CHLORDIAZEPOXIDE Negative (.); CLONAZEPAM Negative (.); DESALKYLFLURAZEPAM Negative (.); DESMETHYLCHLORDIAZEPOXIDE Negative (.); DESMETHYLDIAZEPAM Negative (.); DIAZEPAM Negative (.); FLURAZEPAM Negative (.); LORAZEPAM Negative (.); MIDAZOLAM 21 ng/mL (.); OXAZEPAM Negative (.); TEMAZEPAM Negative (.); TRIAZOLAM Negative (.)
[2020-05-31 11:10] LABS: CANNABIDIOL 3.5 ng/mL (.); CANNABINOID CONFIRMATION Positive (.); CANNABINOL Negative (.); HYDROXY-THC Negative (.); TETRAHYDROCANNABINOL(THC) 6.6 ng/mL (.)
== END 2020-05-22 18:09 | disposition home or self-care (01) | DRG 432 ==
LOC: ER 12:42 → PCU 15:43
PROVIDERS: Internal Medicine Gastroenterology; Physician Assistant; ADMIT Internal Medicine
PROC: 06L38CZ Occlusion of Esophageal Vein with Extraluminal Device, Via Natural or Artificial Opening Endoscopic (ICD-10-PCS; principal; 2020-05-19 16:00)
DX: K70.31 Alcoholic cirrhosis of liver with ascites (principal); I85.11 Secondary esophageal varices with bleeding; K76.6 Portal hypertension; F10.239 Alcohol dependence with withdrawal, unspecified; F17.210 Nicotine dependence, cigarettes, uncomplicated; K72.90 Hepatic failure, unspecified without coma; I10 Essential (primary) hypertension; Y90.0 Blood alcohol level of less than 20 mg/100 ml; Z20.822 Contact with and (suspected) exposure to COVID-19
CPT/HCPCS: 0241U; 36415; 80048; 80053; 81001; 82947; 83735; 84100; 85014; 85018; 85025; 85027; 85610; 87086; 93005; 93010; 96360; 96361; 99285-25; A9270; C9113; G0480; J0696; J2060; J2250; J2354; J2405; J2704; J3010; J3411; J3475; J7030; J7042; J7050; J7120

== ENCOUNTER 2021-03-18 18:28 | Emergency (ER) | payer OTHER ==
[~2021-03-18] VITALS: Ht 170.2 cm; Wt 99.8 kg
[~2021-03-18 18:28] MED LIST changes: +ALBU90OI INH; +ALDACTONE100 MG PO; +AMIT25 PO; +Aldactone100 MG PO; +BIOTIN1 MG PO; +CHLO25 PO; +CIPR250 PO; +COLESTIPOL HCL1 G1 PO; +DAILY-VITE1 EACH PO; +ESCI20 PO; +Enulose10 GM/15 M PO; +FOLI1 PO; +FURO40 PO; +FURO80 PO; +HYDPAM50 PO; +MACRODANTIN100 M1 PO; +MELATONIN5 M1 PO; +NADO20 PO; +Naltrexone HCl50 MG PO; +Neurontin300 MG PO; +VITAMIN A PO; +VITAMIN D5000 UNIT PO; +Vitamin B Comple1 EA PO; +ZINC15 PO
[2021-03-18 19:30] LABS: BASOPHILS ABSOLUTE AUTO 0.05 K/mm3 (0.00-0.23); BASOPHILS PERCENT AUTO 1 % (0-2); EOSINOPHILS ABSOLUTE AUTO 0.07 K/mm3 (0.00-0.68); EOSINOPHILS PERCENT AUTO 1 % (0-6); Hematocrit 40.7 % (33.0-51.0); Hemoglobin 14.1 g/dL (11.5-16.0); IMMATURE GRAN ABSOLUTE AUTO 0.05 K/mm3 (0.00-0.10); IMMATURE GRAN PERCENT AUTO 1 % (0-1); LYMPHOCYTES ABSOLUTE AUTO 1.12 K/mm3 (0.84-5.20); LYMPHOCYTES PERCENT AUTO 16 % (21-46); MONOCYTES ABSOLUTE AUTO 0.51 K/mm3 (0.16-1.47); MONOCYTES PERCENT AUTO 7 % (4-13); Mean Corpuscular HGB 34.1 pg (26.0-34.0); Mean Corpuscular HGB Conc 34.6 g/dL (31.5-36.5); Mean Corpuscular Volume 99 fL (80-100); Mean Platelet Volume 10.9 fL (9.1-12.4); NEUTROPHILS ABSOLUTE AUTO 5.24 K/mm3 (1.96-9.15); NEUTROPHILS PERCENT AUTO 75 % (41-73); Platelet Count 89 K/mm3 (150-400); RDW Coefficient Variation 12.6 % (11.7-14.2); RDW Standard Deviation 45.9 fL (35.1-46.3); Red Blood Cell Count 4.13 M/mm3 (3.80-5.20); White Blood Cell Count 7.04 K/mm3 (4.00-11.30)
[2021-03-18 19:36] LABS: Alanine Aminotransfer (ALT/SGP 75 U/L (12-78); Albumin, Blood 2.8 g/dL (3.4-5.0); Albumin/Globulin Ratio 0.5 (0.8-1.8); Alk Phos 293 U/L (50-136); Anion Gap 6 mmol/L (6-16); Aspartate Aminotrans (AST/SGOT 83 U/L (12-37); Bilirubin, Total 4.1 mg/dL (0.1-1.0); Blood Urea Nitrogen 14 mg/dL (8-24); Bun/Creatinine Ratio 22.4 (12.0-20.0); CO2, Blood 25 mmol/L (21-32); Calcium, Blood 8.8 mg/dL (8.5-10.1); Chloride, Blood 105 mmol/L (98-108); Creatinine, Blood 0.63 mg/dL (0.40-1.00); Globulin, Blood 5.7 g/dL (2.2-4.0); Glomerular Filtration Rate >60 (60-); Glucose, Blood 146 mg/dL (70-99); Sodium, Blood 136 mmol/L (136-145); Total Protein, Blood 8.5 g/dL (6.4-8.2)
[2021-03-18 22:10] LABS: Source, Urine Clean Catch
[2021-03-18 22:13] LABS: Bilirubin, Urine Neg (Neg); Blood, Urine Neg (Neg); Glucose Qualitative, Urine Neg (Neg); Ketones, Urine Neg (Neg); Leukocyte Esterase, Urine Neg (Neg); Nitrite, Urine Neg (Neg); Protein, Urine Neg (Neg); Urobilinogen, Urine 1+ (Normal)
[2021-03-18 22:26] LABS: Appearance, Urine Clear (Clear); Color, Urine Yellow (P-Yellow)
== END 2021-03-19 10:58 | disposition home or self-care (01) ==
LOC: ER 18:28
PROVIDERS: Emergency Medicine; Student in an Organized Health Care Education/Training Program
DX: K74.60 Unspecified cirrhosis of liver (principal); F10.10 Alcohol abuse, uncomplicated; I10 Essential (primary) hypertension; F31.9 Bipolar disorder, unspecified; F17.210 Nicotine dependence, cigarettes, uncomplicated; Z88.5 Allergy status to narcotic agent; Z88.6 Allergy status to analgesic agent; Z88.8 Allergy status to other drugs, medicaments and biological substances; Z79.899 Other long term (current) drug therapy
CPT/HCPCS: 36415; 74181; 76705; 80053; 81003; 81025; 82140; 82248; 83690; 85025; 96374; 96375; 99285-25; A9270; J1885; J3010